=== PATIENT | female | born 1940 | race Hispanic/Latino ===

== ENCOUNTER 2017-12-05 10:09 | Emergency (ER) | payer MEDICARE ==
[~2017-12-05 10:09] MED LIST: ASPI-1197 PO; DRON400T2 PO; DULO60CA63 PO; FISH1CAP27 PO; GLIP10TA9 PO; METF500T6 PO; METO-391 PO; PRAV40TA3 PO; RIVA20TA PO
[2017-12-05] MEDS ORDERED: METOPROLOL TARTRATE 1 MG/ML 5ML VIAL IV ONE (10:29)
[2017-12-05] MEDS ORDERED: METOPROLOL TARTRATE 50 MG TAB ONE (10:29)
[2017-12-05 10:32] LABS: BASOPHILS % (AUTO) 0.8 % (0.0-5.0); EOSINOPHILS % (AUTO) 0.7 % (0.0-8.0); HEMATOCRIT 43.3 % (36-48); LYMPHOCYTES % (AUTO) 24.2 % (21.0-51.0); MEAN CORPUSCULAR HGB CONC 34.2 g/dL (32.0-36.0); MEAN CORPUSCULAR VOLUME 90.6 fL (79-99); MONOCYTES % (AUTO) 5.9 % (3.0-13.0); NEUTROPHILS % (AUTO) 68.4 % (40.0-77.0); PLATELET COUNT (AUTO) 273 K/uL (130-400); RED BLOOD CELL COUNT(AUTO) 4.78 MIL/uL (4.00-5.50); RED CELL DISTRIBUTION WIDTH 14.3 % (11.0-15.5); WHITE BLOOD COUNT (AUTO) 12.4 K/uL (4.8-10.8)
[2017-12-05 10:41] LABS: POTASSIUM 5.3 mmol/L (3.5-5.1)
[2017-12-05 10:54] LABS: ALBUMIN 3.9 g/dL (3.5-5.0); BILIRUBIN,TOTAL 0.7 mg/dL (0.2-1.0); CREATINE KINASE MB 1.4 ng/mL (0.5-3.6); TOTAL PROTEIN, SERUM 8.2 g/dL (6.0-8.3)
[2017-12-05 11:03] LABS: INR 1.06 (0.85-1.15); PARTIAL THROMBOPLASTIN TIME 27.8 SEC (26.3-35.5); PROTHROMBIN TIME 11.1 SEC (9.6-11.6)
== END 2017-12-05 14:57 | disposition home or self-care (01) ==
LOC: EDH 10:09
DX: I48.0 Paroxysmal atrial fibrillation (principal); I25.10 Atherosclerotic heart disease of native coronary artery without angina pectoris; E11.9 Type 2 diabetes mellitus without complications; E78.5 Hyperlipidemia, unspecified; I10 Essential (primary) hypertension; Z95.0 Presence of cardiac pacemaker; Z90.49 Acquired absence of other specified parts of digestive tract; Z79.84 Long term (current) use of oral hypoglycemic drugs; Z79.899 Other long term (current) drug therapy
CPT/HCPCS: 36415; 71045; 80053; 82550; 82553; 84484; 85025; 85610; 85730; 93005 ×2; 96374; 99285; J3490

== ENCOUNTER 2018-07-09 07:47 | Day surgery (SDC) | payer MEDICARE ==
[2018-07-07 15:11] VITALS: BP 147/77
[2018-07-07 15:14] LABS: BASOPHILS % (AUTO) 0.7 % (0.0-5.0); EOSINOPHILS % (AUTO) 1.2 % (0.0-8.0); LYMPHOCYTES % (AUTO) 22.9 % (21.0-51.0); MEAN CORPUSCULAR HEMOGLOBIN 30.8 pg (27.0-33.0); MEAN CORPUSCULAR HGB CONC 33.4 g/dL (32.0-36.0); MEAN CORPUSCULAR VOLUME 92.2 fL (79-99); MONOCYTES % (AUTO) 6.6 % (3.0-13.0); NEUTROPHILS % (AUTO) 68.6 % (40.0-77.0); PLATELET COUNT (AUTO) 273 K/uL (130-400); RED BLOOD CELL COUNT(AUTO) 4.13 MIL/uL (4.00-5.50); WHITE BLOOD COUNT (AUTO) 8.6 K/uL (4.8-10.8)
[2018-07-07 15:23] LABS: CREATININE 1.1 mg/dL (0.5-1.5); POTASSIUM 4.2 mmol/L (3.5-5.1)
[2018-07-07 15:26] LABS: INR 1.02 (0.85-1.15); PROTHROMBIN TIME 10.7 SEC (9.6-11.6)
--- NOTE | 2018-07-08 08:39 | NUR ---
MEDICATIONS PTS DAUGHTER IN [place] ON PHONE. INSTRUCTED ON WHICH MEDS TO TAKE ON AM OF PROCEDURE. VERBALIZED UNDERSTANDING. PTS DAUGHTER STATES SHE HAS BEEN TAKING XARELTO. INSTRUCTED WOULD CALL DR. RODRIGUEZ TO INFORM
--- NOTE | 2018-07-08 08:41 | NUR ---
MEDICATION CALLED AND INFORMED SABA MONTANO IN REGARDS TO PT STILL TAKING XARELTO. SHE WILL INFORM DR. RODRIGUEZ AND CALL ME BACK.
--- NOTE | 2018-07-08 10:00 | NUR ---
GENERATOR REPLACEMENT SPOKE TO DIMPLE DICKINSON REGARDING MRS. ELLIS ORDERS TO CONSENT FOR POSSIBLE PM GENERATOR REPLACEMENT. IN REGARDS TO THE DOCTOR THAT WILL BE PERFORMING PROCEDURE. ALOK WILL SPEAK TO DR. RODRIGUEZ AND CALL ME BACK.
--- NOTE | 2018-07-08 10:39 | NUR ---
DAYANNA MONTANO LVN AT [facility] ON PHONE. PER DR. RODRIGUEZ, PT DOES NOT NEED TO STOP TAKING XARELTO FOR PM PROCEDURE.
--- NOTE | 2018-07-08 11:32 | NUR ---
GENERATOR REPLACEMENT RECEIVED CALL BACK FROM [facility]. PER DR. RODRIGUEZ, PROCEDURE WILL BE DETERMINED AFTER CARDIOVERSION AND THAT DR. JACK WILL BE PERFORMING THE PROCEDURE. DR. RODRIGUEZ WILL NOTIFY DR. JACK IF PACEMAKER GENERATOR REPLACEMENT WILL BE DONE.
[2018-07-09] VITALS (16 sets, daily range): BP systolic 134–174; BP diastolic 72–98
[~2018-07-09] VITALS: Ht 147.3 cm; Wt 75.0 kg
[~2018-07-09 07:47] MED LIST changes: -ASPI-1197 PO; +ATOR40TA71 PO; -DRON400T2 PO; -FISH1CAP27 PO; +FURO20TA4 PO; +INSLAN SQ; +METF-444 PO; -METF500T6 PO; -METO-391 PO; +METO-409 PO; +OMEP20TA25 PO; -PRAV40TA3 PO; +PREG100C PO; +SODIUM CHLORIDE 0.9% 1000ML 1,000 ML IV SCH
[2018-07-09] MEDS ORDERED: MIDAZOLAM HCL 1 MG/ML 2ML VIAL ONE (08:55)
[2018-07-09] MEDS ORDERED: FENTANYL CITRATE PF 50 MCG/1 ML 2ML VIAL ONE (08:55)
[2018-07-09] MEDS ORDERED: NALOXONE HCL 0.4 MG/1 ML ML ONE (08:57)
[2018-07-09] MEDS ORDERED: FLUMAZENIL 0.1MG/1ML 5ML VIAL IV ONE (08:58)
--- NOTE | 2018-07-09 12:00 | NUR ---
DR RODRIGUEZ INT O DO CARDIOVERSION, SPOKE TO PATIENT AND PATIENT AGREED TO HAVE CARDIOVERSION DONE. PATIENT SHOWS NO SIGNS OF DISTRESS PRIOR TO PROCEDURE.
--- NOTE | 2018-07-09 12:15 | NUR ---
PATIENT HAD CARDIOVERSION DONE WITHOUT ANY DIFFICULTY. PATIENT TOLERATED CARDIOVERSION WELL. DR. MICHAEL BRIAN TO PATIENTS FAMILY.
[2018-07-09] MEDS ORDERED: RIVAROXABAN 20 MG TABLET PO SCH (12:30)
--- NOTE | 2018-07-09 12:45 | NUR ---
NOTIFIED VENECIA ELLIS, PATIENT RABIATER THAT PATIENT IS GETTING XARELTO 20 MG TO DAY, AND TO NOT GIVE TODAYS TODAY DOSE AT HOME. PATIENTS DAUGHTER VERBALIZED UNDERSTANDING.
== END 2018-07-09 15:39 | disposition home or self-care (01) ==
LOC: DAH 07:47
PROVIDERS: ATTEND Internal Medicine Cardiovascular Disease
DX: I48.1 Persistent atrial fibrillation (principal); I42.1 Obstructive hypertrophic cardiomyopathy; Z79.01 Long term (current) use of anticoagulants; I45.10 Unspecified right bundle-branch block; Z98.890 Other specified postprocedural states; I44.2 Atrioventricular block, complete; Z95.0 Presence of cardiac pacemaker; Z79.899 Other long term (current) drug therapy; I11.0 Hypertensive heart disease with heart failure; I50.32 Chronic diastolic (congestive) heart failure; I47.1 Supraventricular tachycardia; I20.9 Angina pectoris, unspecified; E66.9 Obesity, unspecified; Z79.84 Long term (current) use of oral hypoglycemic drugs; Z83.3 Family history of diabetes mellitus; Z68.32 Body mass index [BMI] 32.0-32.9, adult
CPT/HCPCS: 36415; 80048; 82948 ×2; 85025; 85610; 85730; 92960; 93005 ×2; J2250; J3010; J2310; J3490

== ENCOUNTER 2018-07-31 05:33 | Day surgery (SDC) | payer MEDICARE ==
[2018-07-29 09:50] LABS: BASOPHILS % (AUTO) 0.5 % (0.0-5.0); EOSINOPHILS % (AUTO) 0.9 % (0.0-8.0); HEMATOCRIT 39.4 % (36-48); LYMPHOCYTES % (AUTO) 20.3 % (21.0-51.0); MEAN CORPUSCULAR HEMOGLOBIN 30.8 pg (27.0-33.0); MEAN CORPUSCULAR HGB CONC 33.2 g/dL (32.0-36.0); MEAN CORPUSCULAR VOLUME 92.7 fL (79-99); MONOCYTES % (AUTO) 5.6 % (3.0-13.0); NEUTROPHILS % (AUTO) 72.7 % (40.0-77.0); PLATELET COUNT (AUTO) 194 K/uL (130-400); RED BLOOD CELL COUNT(AUTO) 4.25 MIL/uL (4.00-5.50); RED CELL DISTRIBUTION WIDTH 16.1 % (11.0-15.5); WHITE BLOOD COUNT (AUTO) 8.4 K/uL (4.8-10.8)
[2018-07-29 10:05] VITALS: BP 142/73
[2018-07-29 10:08] LABS: INR 1.02 (0.85-1.15); PARTIAL THROMBOPLASTIN TIME 27.1 SEC (26.3-35.5); PROTHROMBIN TIME 10.7 SEC (9.6-11.6)
[2018-07-31] VITALS (9 sets, daily range): BP systolic 134–151; BP diastolic 77–90
[~2018-07-31] VITALS: Ht 149.9 cm; Wt 74.6 kg
[~2018-07-31 05:33] MED LIST changes: +AMIO200T5 PO; +CEFAZOLIN SODIUM 1 GM VIAL IVP SCH; -INSLAN SQ; -PREG100C PO; -SODIUM CHLORIDE 0.9% 1000ML 1,000 ML IV SCH; +TRAM50TA4 PO
[2018-07-31] MEDS ORDERED: SODIUM CHLORIDE 0.9% 1000ML 1,000 ML IV ONE (06:15)
--- NOTE | 2018-07-31 06:59 | NUR ---
ASSESSMENT PT HERE FOR PROCEDURE. DAUGHTER AT BEDSIDE. DENIES ANY COMPLAINTS
[2018-07-31] MEDS ORDERED: INSLAN SQ (07:05)
--- NOTE | 2018-07-31 09:17 | NUR ---
PROCEDURE PT TAKEN TO PROCEDURE VIA BED BY BAND ATTACHER PERSONNEL NIC VARMA.
[2018-07-31] MEDS ORDERED: CEFAZOLIN SODIUM 1 GM VIAL ONE (09:26)
[2018-07-31] MEDS ORDERED: BUPIVACAINE/PF 0.25% 10ML VIAL IJ ONE ×2 (09:27→09:29)
[2018-07-31] MEDS ORDERED: LIDOCAINE HCL 1% MDV 50ML VIAL ONE (09:27)
[2018-07-31] MEDS ORDERED: MIDAZOLAM HCL 1 MG/ML 2ML VIAL ONE ×2 (09:34→10:04)
[2018-07-31] MEDS ORDERED: MEPERIDINE-PF 25 MG/ML SYG ONE ×2 (09:34→10:11)
[2018-07-31] MEDS ORDERED: ACETAMINOPHEN 325 MG TAB PO PRN (10:45)
[2018-07-31] MEDS ORDERED: ACETAMINOPHEN-CODEINE 300/30MG TAB PO PRN (10:45)
--- NOTE | 2018-07-31 11:05 | NUR ---
ASSESSMENT RECEIVED PT FROM [employer] PERSONNEL NIC KIRBY. PT DROWSY BUT AROUSABLE. PRESSURE DRSG TO LEFT UPPER CHEST IN PLACE. SITE SOFT TO TOUCH. NO BLEEDING, OOZING NOTED. DAUGHTER AT BEDSIDE.
--- NOTE | 2018-07-31 11:19 | NUR ---
SITE CHECK SITE TO LEFT UPPER CHEST SOFT TO TOUCH. NO BLEEDING, OOZING NOTED TO SITE. PRESSURE DRSG IN PLACE.
--- NOTE | 2018-07-31 11:35 | NUR ---
SITE CHECK SITE TO LEFT UPPER CHEST SOFT TO TOUCH. NO BLEEDING, OOZING NOTED TO SITE. PRESSURE DRSG IN PLACE.
--- NOTE | 2018-07-31 11:50 | NUR ---
SITE CHECK SITE TO LEFT UPPER CHEST SOFT TO TOUCH. NO BLEEDING, OOZING NOTED TO SITE. PRESSURE DRSG IN PLACE.
--- NOTE | 2018-07-31 12:05 | NUR ---
SITE CHECK SITE TO LEFT UPPER CHEST SOFT TO TOUCH. NO BLEEDING, OOZING NOTED TO SITE. PRESSURE DRSG IN PLACE.
--- NOTE | 2018-07-31 12:35 | NUR ---
SITE CHECK SITE TO LEFT UPPER CHEST SOFT TO TOUCH. NO BLEEDING, OOZING NOTED TO SITE. PRESSURE DRSG IN PLACE.
--- NOTE | 2018-07-31 13:05 | NUR ---
SITE CHECK SITE TO LEFT UPPER CHEST SOFT TO TOUCH. NO BLEEDING, OOZING NOTED TO SITE. PRESSURE DRSG IN PLACE.
--- NOTE | 2018-07-31 14:00 | NUR ---
SITE CHECK ORAL AND WRITTEN DISCHARGE INSTRUCTIONS GIVEN TO PT AND PTS DAUGHTER. INSTRUCTIONS GIVEN ON DAILY DRSG CHANGES AND MONITORING FOR S/S OF INFECTION. XARELTO TO START ON SATURDAY. BOTH VERBALIZED UNDERSTANDING. PRESSURE DRSG REMOVED. SITE SOFT TO TOUCH. NO BLEEDING, OOZING NOTED.
--- NOTE | 2018-07-31 14:36 | NUR ---
SITE CHECK SITE TO LEFT UPPER CHEST SOFT TO TOUCH. NO BLEEDING, OOZING NOTED TO SITE. PRESSURE DRSG IN PLACE.
== END 2018-07-31 14:38 | disposition home or self-care (01) ==
LOC: DAH 05:33
PROVIDERS: ATTEND Internal Medicine Cardiovascular Disease
DX: Z45.010 Encounter for checking and testing of cardiac pacemaker pulse generator [battery] (principal); I48.0 Paroxysmal atrial fibrillation; Z79.01 Long term (current) use of anticoagulants; Z79.899 Other long term (current) drug therapy; I42.2 Other hypertrophic cardiomyopathy; I44.2 Atrioventricular block, complete; Z68.32 Body mass index [BMI] 32.0-32.9, adult; E66.9 Obesity, unspecified; I11.0 Hypertensive heart disease with heart failure; I50.9 Heart failure, unspecified; Z86.73 Personal history of transient ischemic attack (TIA), and cerebral infarction without residual deficits; Z98.890 Other specified postprocedural states; G47.30 Sleep apnea, unspecified; Z83.3 Family history of diabetes mellitus; I45.10 Unspecified right bundle-branch block; R00.1 Bradycardia, unspecified
CPT/HCPCS: 33228; 36415; 80048; 82948 ×2; 85025; 85610; 85730; 93005; A4606; C1785; J0690; J2175 ×2; J2250 ×2; J3490 ×3; J7030; 99156; 99157

== ENCOUNTER 2018-10-05 16:02 | Emergency (ER) | payer MEDICARE ==
[~2018-10-05 16:02] MED LIST changes: -CEFAZOLIN SODIUM 1 GM VIAL IVP SCH; +INSLAN SQ
[2018-10-05 17:07] LABS: BASOPHILS % (AUTO) 0.5 % (0.0-5.0); EOSINOPHILS % (AUTO) 2.5 % (0.0-8.0); LYMPHOCYTES % (AUTO) 22.4 % (21.0-51.0); MEAN CORPUSCULAR HEMOGLOBIN 32.2 pg (27.0-33.0); MEAN CORPUSCULAR HGB CONC 33.8 g/dL (32.0-36.0); MEAN CORPUSCULAR VOLUME 95.1 fL (79-99); MONOCYTES % (AUTO) 7.8 % (3.0-13.0); NEUTROPHILS % (AUTO) 66.8 % (40.0-77.0); PLATELET COUNT (AUTO) 190 K/uL (130-400); RED CELL DISTRIBUTION WIDTH 16.4 % (11.0-15.5); WHITE BLOOD COUNT (AUTO) 5.5 K/uL (4.8-10.8)
[2018-10-05] MEDS ORDERED: IPRATROPIUM/ALBUTEROL SULFATE 3 ML SOLUTION IH ONE (17:16)
[2018-10-05] MEDS ORDERED: AZITHROMYCIN 250 MG TABLET PO ONE (17:20)
[2018-10-05 17:29] LABS: B-TYPE NATRIURETIC PEPTIDE 545 pg/mL (0-100)
[2018-10-05 17:29] LABS: APPEARANCE,URINE Clear (CLEAR); BILIRUBIN,URINE Negative (NEGATIVE); COLOR,URINE Yellow (YELLOW); GLUCOSE, URINE (UA) Negative (NEGATIVE); KETONES,URINE Negative (NEGATIVE); LEUKOCYTE ESTERASE ,URINE Small (NEGATIVE); NITRATE,URINE Negative (NEGATIVE); OCCULT BLOOD,URINE Negative (NEGATIVE); PROTEIN,URINE Negative (NEGATIVE)
[2018-10-05 17:34] LABS: INR 0.96 (0.85-1.15); PARTIAL THROMBOPLASTIN TIME 26.6 SEC (26.3-35.5); PROTHROMBIN TIME 10.1 SEC (9.6-11.6)
[2018-10-05 17:38] LABS: BACTERIA,URINE None Seen /HPF (None Seen); RBC,URINE None Seen /HPF (0-1); WBC,URINE 0-1 /HPF (0-1)
[2018-10-05 18:13] LABS: CREATININE 0.9 mg/dL (0.5-1.5); POTASSIUM 4.3 mmol/L (3.5-5.1)
[2018-10-05 18:19] LABS: ALBUMIN 3.1 g/dL (3.5-5.0); BILIRUBIN,TOTAL 0.5 mg/dL (0.2-1.0); TOTAL PROTEIN, SERUM 6.8 g/dL (6.0-8.3)
== END 2018-10-05 19:56 | disposition home or self-care (01) ==
LOC: EDH 16:02
DX: J20.9 Acute bronchitis, unspecified (principal); I10 Essential (primary) hypertension; E11.9 Type 2 diabetes mellitus without complications; I48.91 Unspecified atrial fibrillation; I25.10 Atherosclerotic heart disease of native coronary artery without angina pectoris; Z95.1 Presence of aortocoronary bypass graft; Z90.49 Acquired absence of other specified parts of digestive tract
CPT/HCPCS: 36415; 71045; 80053; 81001; 82550; 83605; 83880; 84484; 85025; 85610; 85730; 87040 ×2; 87804 ×2; 93005; 94640; 99285; G0480

== ENCOUNTER 2019-04-01 08:21 | Day surgery (SDC) | payer MEDICARE ==
[~2019-04-01] VITALS: Ht 154.9 cm; Wt 73.5 kg
[~2019-04-01 08:21] MED LIST changes: -DULO60CA63 PO; +DULO60CA64 PO; +SODIUM CHLORIDE 0.9% 1000ML 1,000 ML IV ONE
[2019-04-01 10:30] VITALS: BP 157/86
[2019-04-01] MEDS ORDERED: PREG100C PO (11:22)
[2019-04-01 11:34] VITALS: BP 120/75
[2019-04-01 11:39] VITALS: BP 118/76
[2019-04-01 11:44] VITALS: BP 124/80
[2019-04-01 11:49] VITALS: BP 130/84
[2019-04-01 11:54] VITALS: BP 138/86
--- NOTE | 2019-04-01 12:15 | NUR ---
CALLED DR NIEVES'S OFFICE AND INFORMED THEM TO CALL IN THE BOWEL PREP TO THE PATIENT'S PHARMACY FOR THE PATIENT'S COLONOSCOPY TOMORROW.
--- NOTE | 2019-04-01 12:20 | NUR ---
INSTRUCTED PATIENT AND PATIENT'S DAUGHTER THAT PATIENT WILL NEED TO BE HERE AT 5:30AM FOR COLONOSCOPY TOMORROW. BOTH VERBALIZED UNDERSTANDING. INSTRUCTED PATIENT TO ONLY HAVE CLEAR LIQUIDS AND FOLLOW THE SAME PREP THAT SHE DID FOR PROCEDURE THAT WAS DONE TODAY.
--- NOTE | 2019-04-01 13:30 | NUR ---
CALLED PATIENT AND SPOKE WITH PATIENT'S SPOUSE. INSTRUCTED HIM TO HAVE PATIENT HOLD XARELTO/BLOOD THINNER. PATIENT'S SPOUSE VERBALIZED UNDERSTANDING AND AGREED TO INSTRUCT HIS NOT TO TAKE XARELTO.
== END 2019-04-01 13:10 | disposition home or self-care (01) ==
LOC: DAH 08:21 → ENDO 08:21
PROVIDERS: ATTEND Internal Medicine Gastroenterology
DX: R14.0 Abdominal distension (gaseous) (principal); K29.50 Unspecified chronic gastritis without bleeding; K57.30 Diverticulosis of large intestine without perforation or abscess without bleeding; K44.9 Diaphragmatic hernia without obstruction or gangrene; K22.8 Other specified diseases of esophagus; K21.9 Gastro-esophageal reflux disease without esophagitis; E78.2 Mixed hyperlipidemia; K76.0 Fatty (change of) liver, not elsewhere classified; I10 Essential (primary) hypertension; I25.10 Atherosclerotic heart disease of native coronary artery without angina pectoris; E11.9 Type 2 diabetes mellitus without complications; M19.90 Unspecified osteoarthritis, unspecified site; F32.9 Major depressive disorder, single episode, unspecified; Z86.010 Personal history of colon polyps; Z95.1 Presence of aortocoronary bypass graft; Z95.0 Presence of cardiac pacemaker; Z79.82 Long term (current) use of aspirin; Z79.899 Other long term (current) drug therapy
CPT/HCPCS: 43239; 45378; 82948 ×2; 88305; A4215; A4221; A4222; A4223; A4606; A4615; A4663; J7030

== ENCOUNTER 2019-04-02 06:35 | Day surgery (SDC) | payer MEDICARE ==
[2019-04-02] VITALS (7 sets, daily range): BP systolic 107–165; BP diastolic 17–96
[~2019-04-02] VITALS: Ht 157.5 cm; Wt 75.7 kg
[~2019-04-02 06:35] MED LIST changes: +PREG100C PO; -SODIUM CHLORIDE 0.9% 1000ML 1,000 ML IV ONE
[2019-04-02] MEDS ORDERED: SODIUM CHLORIDE 0.9% 1000ML 1,000 ML IV ONE (07:03)
[2019-04-02] MEDS ORDERED: PROPOFOL 10 MG/ML 20ML VIAL IV ONE (08:00)
[2019-04-02] MEDS ORDERED: LIDOCAINE HCL-MPF 2% 5ML VIAL ONE (08:00)
[2019-04-02] MEDS ORDERED: SIMETHICONE 40 MG/0.6 ML ML ONE (08:05)
[2019-04-02] MEDS ORDERED: PHENYLEPHRINE HCL 10 MG/ML 1ML VIAL IV ONE (08:16)
== END 2019-04-02 09:10 | disposition home or self-care (01) ==
LOC: ENDO 06:35 → DAH 06:35 → ENDO 09:10
PROVIDERS: ATTEND Internal Medicine
DX: R14.0 Abdominal distension (gaseous) (principal); D12.4 Benign neoplasm of descending colon; K62.1 Rectal polyp; K57.30 Diverticulosis of large intestine without perforation or abscess without bleeding; K76.0 Fatty (change of) liver, not elsewhere classified; K21.9 Gastro-esophageal reflux disease without esophagitis; K44.9 Diaphragmatic hernia without obstruction or gangrene; K29.70 Gastritis, unspecified, without bleeding; I10 Essential (primary) hypertension; F32.9 Major depressive disorder, single episode, unspecified; E11.9 Type 2 diabetes mellitus without complications; E78.2 Mixed hyperlipidemia; Z86.010 Personal history of colon polyps; Z95.0 Presence of cardiac pacemaker; M19.90 Unspecified osteoarthritis, unspecified site; Z79.82 Long term (current) use of aspirin; Z79.899 Other long term (current) drug therapy; Z90.49 Acquired absence of other specified parts of digestive tract
CPT/HCPCS: 45380; 45385; 82948; 88305; A4215; A4221; A4222; A4223; A4606; A4620; A4663; J2370; J2704; J3490; J7030

== ENCOUNTER 2021-09-27 16:18 | Inpatient (IN) | payer OTHER, MEDICARE ==
[~2021-09-27] VITALS: Ht 152.4 cm; Wt 67.1 kg
[~2021-09-27 16:18] MED LIST changes: -AMIO200T5 PO; +AMIO200T68 PO; -INSLAN SQ; +OMEP20TA20 PO; -OMEP20TA25 PO; -TRAM50TA4 PO
[2021-09-27 17:05] LABS: BASOPHILS % (AUTO) 0.4 % (0.0-5.0); EOSINOPHILS % (AUTO) 0.1 % (0.0-8.0); HEMATOCRIT 45.9 % (36-48); LYMPHOCYTES % (AUTO) 13.4 % (21.0-51.0); MEAN CORPUSCULAR HEMOGLOBIN 28.5 pg (27.0-33.0); MEAN CORPUSCULAR HGB CONC 32.7 g/dL (32.0-36.0); MEAN CORPUSCULAR VOLUME 87.3 fL (79-99); MONOCYTES % (AUTO) 15.1 % (3.0-13.0); NEUTROPHILS % (AUTO) 70.7 % (40.0-77.0); PLATELET COUNT (AUTO) 211 K/uL (130-400); RED BLOOD CELL COUNT(AUTO) 5.26 MIL/uL (4.00-5.50); RED CELL DISTRIBUTION WIDTH 15.8 % (11.0-15.5)
[2021-09-27 17:18] LABS: CREATININE 1.1 mg/dL (0.5-1.5); POTASSIUM 4.2 mmol/L (3.5-5.1)
[2021-09-27 17:27] LABS: ALBUMIN 3.7 g/dL (3.5-5.0); BILIRUBIN,TOTAL 0.6 mg/dL (0.2-1.0); TOTAL PROTEIN, SERUM 8.3 g/dL (6.0-8.3)
[2021-09-27] MEDS: DILTIAZEM 125MG+100 ML NS 125 ML IV SCH (17:30)
[2021-09-27] MEDS ORDERED: FUROSEMIDE 40MG VIAL IV ONE (18:00)
[2021-09-27] MEDS ORDERED: DEXTROSE 50%-WATER 50 ML DISP.SYRIN IV PRN (19:00)
[2021-09-27] MEDS ORDERED: DILTIAZEM 125 MG/25 ML INJ 125 MG in 0.9%NACL 100ML 100 ML IV SCH (19:00)
[2021-09-27] MEDS ORDERED: GLUCAGON 1MG KIT 1 MG ML IM PRN (19:00)
[2021-09-27] MEDS: INSULIN HUMULIN R 100 UNIT/ML 3ML SQ SCH (20:51)
[2021-09-27 23:30] VITALS: BP 143/62
[2021-09-27 23:45] VITALS: BP 121/58
[2021-09-28] VITALS (33 sets, daily range): BP systolic 93–137; BP diastolic 43–80
[2021-09-28] MEDS ORDERED: SEMA7TAB2 PO (00:11)
[2021-09-28] MEDS ORDERED: ALEN70TA80 PO (00:11)
[2021-09-28] MEDS ORDERED: DONE-53 PO (00:11)
[2021-09-28] MEDS ORDERED: LISI20TA24 PO (00:11)
[2021-09-28] MEDS ORDERED: DIGO0.12 PO (00:11)
[2021-09-28] MEDS ORDERED: FURO40TA5 PO (00:11)
[2021-09-28] MEDS ORDERED: OMEP40CA21 PO (00:11)
[2021-09-28 05:43] LABS: BASOPHILS % (AUTO) 0.4 % (0.0-5.0); EOSINOPHILS % (AUTO) 12.9 % (0.0-8.0); HEMATOCRIT 44.2 % (36-48); LYMPHOCYTES % (AUTO) 18.7 % (21.0-51.0); MEAN CORPUSCULAR HEMOGLOBIN 29.2 pg (27.0-33.0); MEAN CORPUSCULAR HGB CONC 34.4 g/dL (32.0-36.0); NEUTROPHILS % (AUTO) 54.7 % (40.0-77.0); PLATELET COUNT (AUTO) 194 K/uL (130-400); RED CELL DISTRIBUTION WIDTH 15.9 % (11.0-15.5); WHITE BLOOD COUNT (AUTO) 8.9 K/uL (4.8-10.8)
[2021-09-28 05:57] LABS: HEMOGLOBIN A1C 8.9 % (4.0-6.0)
[2021-09-28 06:02] LABS: ALBUMIN 3.4 g/dL (3.5-5.0); BILIRUBIN,TOTAL 0.6 mg/dL (0.2-1.0); MAGNESIUM 2.1 mg/dL (1.80-2.40); POTASSIUM 3.9 mmol/L (3.5-5.1); TOTAL PROTEIN, SERUM 7.8 g/dL (6.0-8.3)
[2021-09-28] MEDS: INSULIN HUMULIN R 100 UNIT/ML 3ML SQ SCH ×4 (07:30→20:41)
[2021-09-28] MEDS ORDERED: FUROSEMIDE 40MG VIAL IV SCH (09:00)
[2021-09-28] MEDS: DIGOXIN 125 MCG TABLET PO SCH (12:20)
[2021-09-28] MEDS: FUROSEMIDE 40 MG TABLET PO SCH (12:20)
[2021-09-28] MEDS: DILTIAZEM 125MG+100 ML NS 125 ML IV SCH (12:21)
[2021-09-28 15:09] LABS: APPEARANCE,URINE Cloudy (CLEAR); BILIRUBIN,URINE Negative (NEGATIVE); COLOR,URINE Yellow (YELLOW); GLUCOSE, URINE (UA) Negative (NEGATIVE); KETONES,URINE Negative (NEGATIVE); LEUKOCYTE ESTERASE ,URINE Moderate (NEGATIVE); NITRATE,URINE Negative (NEGATIVE); OCCULT BLOOD,URINE Large (NEGATIVE); PROTEIN,URINE Trace mg/dL (NEGATIVE)
[2021-09-28 15:18] LABS: BACTERIA,URINE Few /HPF (None Seen); SQUAMOUS EPITHELIAL CELL,UR Few /HPF (0-2)
[2021-09-28] MEDS: METOPROLOL TARTRATE 50 MG TAB PO SCH (18:00)
[2021-09-28] MEDS: ATORVASTATIN 40 MG TABLET PO SCH (20:51)
[2021-09-28] MEDS: ACETAMINOPHEN 325 MG TAB PO PRN (20:52)
[2021-09-29] MEDS: METOPROLOL TARTRATE 50 MG TAB PO SCH ×4 (00:56→17:32)
[2021-09-29 03:00] VITALS: BP 134/71
[2021-09-29] MEDS: INSULIN HUMULIN R 100 UNIT/ML 3ML SQ SCH ×4 (05:21→21:01)
[2021-09-29] MEDS: GLIPIZIDE 5 MG TABLET PO SCH ×2 (06:29→14:59)
[2021-09-29 08:47] VITALS: BP 126/71
[2021-09-29] MEDS: PANTOPRAZOLE 40 MG TAB DR PO SCH (08:55)
[2021-09-29] MEDS: DULOXETINE HCL 30 MG CAP PO SCH (08:55)
[2021-09-29] MEDS: FUROSEMIDE 40 MG TABLET PO SCH (08:55)
[2021-09-29] MEDS: DONEPEZIL HCL 5 MG TAB PO SCH (08:55)
[2021-09-29] MEDS: SEMAGLUTIDE 7 MG PO SCH (08:56)
[2021-09-29] MEDS: RIVAROXABAN 20 MG TABLET PO SCH (08:56)
[2021-09-29] MEDS: DIGOXIN 125 MCG TABLET PO SCH (08:56)
[2021-09-29] MEDS ORDERED: DIGOXIN 125 MCG TABLET PO SCH (09:00)
[2021-09-29] MEDS ORDERED: FUROSEMIDE 40 MG TABLET PO SCH (09:00)
[2021-09-29 12:13] VITALS: BP 125/62
[2021-09-29 16:46] VITALS: BP 116/63
[2021-09-29 19:32] VITALS: BP 109/66
[2021-09-29] MEDS: ATORVASTATIN 40 MG TABLET PO SCH (20:57)
[2021-09-29 23:23] VITALS: BP 117/55
[2021-09-30] MEDS: METOPROLOL TARTRATE 50 MG TAB PO SCH ×2 (00:50→06:02)
[2021-09-30 03:27] VITALS: BP 115/77
[2021-09-30] MEDS: GLIPIZIDE 5 MG TABLET PO SCH ×2 (06:02→16:53)
[2021-09-30] MEDS: INSULIN HUMULIN R 100 UNIT/ML 3ML SQ SCH ×4 (06:17→20:53)
[2021-09-30 08:56] VITALS: BP 101/64
[2021-09-30] MEDS: SEMAGLUTIDE 7 MG PO SCH (09:00)
[2021-09-30] MEDS: PANTOPRAZOLE 40 MG TAB DR PO SCH (09:11)
[2021-09-30] MEDS: DULOXETINE HCL 30 MG CAP PO SCH (09:11)
[2021-09-30] MEDS: FUROSEMIDE 40 MG TABLET PO SCH (09:12)
[2021-09-30] MEDS: DONEPEZIL HCL 5 MG TAB PO SCH (09:12)
[2021-09-30] MEDS: METOPROLOL SUCCINATE 50 MG TAB.SR.24H PO SCH ×2 (09:12→20:53)
[2021-09-30] MEDS: DIGOXIN 125 MCG TABLET PO SCH (09:12)
[2021-09-30] MEDS: RIVAROXABAN 20 MG TABLET PO SCH (09:13)
[2021-09-30 12:13] VITALS: BP 100/61
[2021-09-30 14:02] LABS: HEMATOCRIT 43.7 % (36-48); MEAN CORPUSCULAR HEMOGLOBIN 28.5 pg (27.0-33.0); MEAN CORPUSCULAR HGB CONC 32.7 g/dL (32.0-36.0); MEAN CORPUSCULAR VOLUME 87.2 fL (79-99); RED BLOOD CELL COUNT(AUTO) 5.01 MIL/uL (4.00-5.50); RED CELL DISTRIBUTION WIDTH 15.8 % (11.0-15.5); WHITE BLOOD COUNT (AUTO) 10.2 K/uL (4.8-10.8)
[2021-09-30 14:11] LABS: MAGNESIUM 2.1 mg/dL (1.80-2.40); POTASSIUM 3.9 mmol/L (3.5-5.1)
[2021-09-30 16:56] VITALS: BP 100/56
[2021-09-30 20:06] VITALS: BP 108/52
[2021-09-30] MEDS: ATORVASTATIN 40 MG TABLET PO SCH (20:53)
[2021-09-30] MEDS: ACETAMINOPHEN 325 MG TAB PO PRN (22:37)
[2021-09-30 23:22] VITALS: BP 107/63
[2021-10-01 03:45] VITALS: BP 118/65
[2021-10-01] MEDS: INSULIN HUMULIN R 100 UNIT/ML 3ML SQ SCH ×4 (05:31→21:00)
[2021-10-01] MEDS: GLIPIZIDE 5 MG TABLET PO SCH ×2 (06:28→16:27)
[2021-10-01 08:02] VITALS: BP 121/58
[2021-10-01] MEDS: DONEPEZIL HCL 5 MG TAB PO SCH (08:23)
[2021-10-01] MEDS: DULOXETINE HCL 30 MG CAP PO SCH (08:23)
[2021-10-01] MEDS: PANTOPRAZOLE 40 MG TAB DR PO SCH (08:23)
[2021-10-01] MEDS: RIVAROXABAN 20 MG TABLET PO SCH (08:23)
[2021-10-01] MEDS: METOPROLOL SUCCINATE 50 MG TAB.SR.24H PO SCH ×2 (08:24→21:29)
[2021-10-01] MEDS: SEMAGLUTIDE 7 MG PO SCH (08:24)
[2021-10-01] MEDS: DIGOXIN 125 MCG TABLET PO SCH (08:24)
[2021-10-01] MEDS: FUROSEMIDE 40 MG TABLET PO SCH (08:24)
[2021-10-01 12:00] VITALS: BP 137/85
[2021-10-01 16:00] VITALS: BP 114/58
[2021-10-01 19:41] VITALS: BP 113/54
[2021-10-01] MEDS: ATORVASTATIN 40 MG TABLET PO SCH (21:29)
[2021-10-01] MEDS: ACETAMINOPHEN 325 MG TAB PO PRN (21:38)
[2021-10-01 23:33] VITALS: BP 141/65
[2021-10-02] VITALS (7 sets, daily range): BP systolic 95–125; BP diastolic 47–62
[2021-10-02] MEDS: INSULIN HUMULIN R 100 UNIT/ML 3ML SQ SCH ×3 (06:26→16:30)
[2021-10-02] MEDS: GLIPIZIDE 5 MG TABLET PO SCH ×2 (06:30→16:30)
[2021-10-02] MEDS: METOPROLOL SUCCINATE 50 MG TAB.SR.24H PO SCH (09:00)
[2021-10-02] MEDS: SEMAGLUTIDE 7 MG PO SCH (09:00)
[2021-10-02] MEDS: PANTOPRAZOLE 40 MG TAB DR PO SCH (09:58)
[2021-10-02] MEDS: FUROSEMIDE 40 MG TABLET PO SCH (09:58)
[2021-10-02] MEDS: DONEPEZIL HCL 5 MG TAB PO SCH (09:58)
[2021-10-02] MEDS: RIVAROXABAN 20 MG TABLET PO SCH (09:58)
[2021-10-02] MEDS: DULOXETINE HCL 30 MG CAP PO SCH (09:59)
[2021-10-02] MEDS: DIGOXIN 125 MCG TABLET PO SCH (10:01)
[2021-10-05] MEDS ORDERED: ALENDRONATE SODIUM 35 MG TAB PO SCH (09:00)
== END 2021-10-02 18:00 | disposition home or self-care (01) | DRG 291 ==
LOC: EDH 16:18 → EDHIP 18:45 → 2AH 22:57
PROVIDERS: ADMIT Internal Medicine Infectious Disease; ATTEND Internal Medicine Infectious Disease
PROC: 4B02XSZ Measurement of Cardiac Pacemaker, External Approach (ICD-10-PCS; principal; 2021-09-28)
DX: I11.0 Hypertensive heart disease with heart failure (principal); I50.33 Acute on chronic diastolic (congestive) heart failure; J96.01 Acute respiratory failure with hypoxia; I48.20 Chronic atrial fibrillation, unspecified; N39.0 Urinary tract infection, site not specified; I25.10 Atherosclerotic heart disease of native coronary artery without angina pectoris; E11.9 Type 2 diabetes mellitus without complications; Z79.899 Other long term (current) drug therapy; Z83.3 Family history of diabetes mellitus; G47.33 Obstructive sleep apnea (adult) (pediatric); Z95.0 Presence of cardiac pacemaker; E66.9 Obesity, unspecified; G47.30 Sleep apnea, unspecified; I42.1 Obstructive hypertrophic cardiomyopathy; E78.5 Hyperlipidemia, unspecified; Z79.01 Long term (current) use of anticoagulants; R53.81 Other malaise; N19 Unspecified kidney failure; Z68.28 Body mass index [BMI] 28.0-28.9, adult
CPT/HCPCS: 36415; 71045; 80048; 80053; 80162; 81001; 82550; 82948; 83036; 83735; 83874; 83880; 84484; 85025; 85027; 85730; 87088; 93005; 99291; G0378; J1815; J1940; J3490

== ENCOUNTER → 2021-10-20 | Outpatient (CLI) | payer OTHER, MEDICARE ==
[~2021-10-20] MED LIST changes: +ALEN70TA80 PO; -AMIO200T68 PO; +DIGO0.12 PO; +DONE-53 PO; -FURO20TA4 PO; +FURO40TA5 PO; -METF-444 PO; -OMEP20TA20 PO; +OMEP40CA21 PO; -PREG100C PO; +SEMA7TAB2 PO
[2021-10-20 12:36] LABS: DIGOXIN 1.29 ng/mL (0.50-2.00); POTASSIUM 4.1 mmol/L (3.5-5.1)
== END ==
LOC: LAB 09:04
PROVIDERS: ATTEND Internal Medicine Cardiovascular Disease
DX: I50.32 Chronic diastolic (congestive) heart failure (principal)
CPT/HCPCS: 36415; 80048; 80162; 83880

== ENCOUNTER → 2022-12-13 | Outpatient (CLI) | payer OTHER, MEDICARE ==
[2022-12-13 16:28] LABS: CREATININE 1.1 mg/dL (0.5-1.5); POTASSIUM 4.1 mmol/L (3.5-5.1)
== END | disposition home or self-care (01) ==
LOC: LAB 13:37
PROVIDERS: ATTEND Internal Medicine Cardiovascular Disease
DX: I50.32 Chronic diastolic (congestive) heart failure (principal)
CPT/HCPCS: 36415; 80048; 83880

== ENCOUNTER → 2022-12-19 | Outpatient (CLI) | payer OTHER, MEDICARE ==
[2022-12-19 16:43] LABS: DIGOXIN 0.54 ng/mL (0.50-2.00); POTASSIUM 3.7 mmol/L (3.5-5.1)
== END | disposition home or self-care (01) ==
LOC: LAB 11:38
PROVIDERS: ATTEND Internal Medicine Cardiovascular Disease
DX: I50.32 Chronic diastolic (congestive) heart failure (principal)
CPT/HCPCS: 36415; 80048; 80162; 83880

== ENCOUNTER → 2023-02-04 | Outpatient (CLI) | payer OTHER, MEDICARE ==
[2023-02-04 16:27] LABS: BASOPHILS # (AUTO) 0.07 K/uL (0.00-0.20); BASOPHILS % (AUTO) 0.7 % (0.0-5.0); EOSINOPHILS # (AUTO) 0.09 K/uL (0.00-0.70); EOSINOPHILS % (AUTO) 0.9 % (0.0-8.0); HEMATOCRIT 43.8 % (36-48); IMMATURE GRANULOCYTE ABSOLUTE 0.03 K/uL (0-1); LYMPHOCYTES # (AUTO) 2.4 K/uL (1.0-4.8); LYMPHOCYTES % (AUTO) 25.2 % (21.0-51.0); MEAN CORPUSCULAR HEMOGLOBIN 31.1 pg (27.0-33.0); MEAN CORPUSCULAR HGB CONC 33.3 g/dL (32.0-36.0); MEAN CORPUSCULAR VOLUME 93.4 fL (79-99); MONOCYTES # (AUTO) 0.6 K/uL (0.1-1.0); MONOCYTES % (AUTO) 6.6 % (3.0-13.0); NEUTROPHILS # (AUTO) 6.4 K/uL (1.8-7.7); NEUTROPHILS % (AUTO) 66.3 % (40.0-77.0); PLATELET COUNT (AUTO) 297 K/uL (130-400); RED BLOOD CELL COUNT(AUTO) 4.69 MIL/uL (4.00-5.50); RED CELL DISTRIBUTION WIDTH 13.9 % (11.0-15.5); WHITE BLOOD COUNT (AUTO) 9.7 K/uL (4.8-10.8)
[2023-02-04 16:48] LABS: CREATININE 1.4 mg/dL (0.5-1.5); DIGOXIN 1.19 ng/mL (0.50-2.00); POTASSIUM 3.6 mmol/L (3.5-5.1)
== END | disposition home or self-care (01) ==
LOC: LAB 14:44
PROVIDERS: ATTEND Internal Medicine Cardiovascular Disease
DX: I50.32 Chronic diastolic (congestive) heart failure (principal); Z79.01 Long term (current) use of anticoagulants
CPT/HCPCS: 36415; 80048; 80162; 85025

== ENCOUNTER → 2023-06-12 | Outpatient (CLI) | payer OTHER, MEDICARE ==
[2023-06-12 12:31] LABS: POTASSIUM 3.9 mmol/L (3.5-5.1)
== END | disposition home or self-care (01) ==
LOC: LAB 10:37
PROVIDERS: ATTEND Internal Medicine Cardiovascular Disease
DX: I42.1 Obstructive hypertrophic cardiomyopathy (principal)
CPT/HCPCS: 36415; 80048

== ENCOUNTER → 2023-09-27 | Outpatient (CLI) | payer OTHER, MEDICARE ==
[2023-09-27 12:47] LABS: MAGNESIUM 2.1 mg/dL (1.80-2.40); POTASSIUM 4.1 mmol/L (3.5-5.1)
[2023-09-27 13:05] LABS: DIGOXIN 0.97 ng/mL (0.50-2.00)
== END | disposition home or self-care (01) ==
LOC: LAB 10:50
PROVIDERS: ATTEND Internal Medicine Cardiovascular Disease
DX: I47.20 Ventricular tachycardia, unspecified (principal)
CPT/HCPCS: 36415; 80048; 80162; 83735